=== PATIENT | female | born 1960 | race Caucasian/White ===

== ENCOUNTER 2020-07-10 15:14 | Emergency (ER) | payer OTHER ==
[~2020-07-10] VITALS: Ht 160 cm; Wt 63.5 kg
[2020-07-10 15:25] VITALS: BP 131/77
--- NOTE | 2020-07-10 15:30 | NUR ---
PT PLACED IN [facility] BED C.
[2020-07-10] MEDS: LORazepam 2 MG/ML VIAL IVP ONE (16:00)
--- NOTE | 2020-07-10 16:00 | NUR ---
PT DEAF AND UNABLE TO COMMUNICATE VERBALLY. PT READ WRITTEN NOTED AND RESPONDED THAT SHE HAS BEEN HAVING SUDDEN ONSET GENERALIZED BODY PAIN SINCE 2PM TODAY. PER EMS - PT WAS TWITCHING AND HAVING "SEIZURE LIKE BEHAVIOR." PER EMS, PT HAS A HX OF EPILEPSY BUT STOPPED TAKING HER MEDICATION. LAST SEIZURE APPROX. 1 YEAR AGO. PER PT SISTER, SHE HAS RECENTLY STOPPPED TAKING MEDICATION FOR LUPUS AND EPILESPY AND STATES THE PATIENTS CLAIMS "GOD HEALED HER". PER SISITER, PT ALSO USES [employer]C GUMMIES FOR CHRONIC PAIN. PT IS POOR HISTORIAN. NO OBVIOUS TRAUMA NOTED. PT PLACED IN [facility] AT THIS TIME.
[2020-07-10] MEDS: NACL 0.9% 1,000 ML IV ONE (16:01)
[2020-07-10 16:11] LABS: BASOPHILS % (AUTO) 0.6 % (0.0-2.0); EOSINOPHILS % (AUTO) 0.5 % (0.0-4.0); HEMATOCRIT 28.6 % (36-48); HEMOGLOBIN 9.4 g/dL (12.0-16.0); LYMPHOCYTES # (AUTO) 0.8 K/uL (2.5-16.5); LYMPHOCYTES % (AUTO) 33.7 % (20.5-51.1); MEAN CORPUSCULAR HEMOGLOBIN 27 pg (27-31); MEAN CORPUSCULAR HGB CONC 33 g/dL (33-37); MEAN CORPUSCULAR VOLUME 82.6 fL (80-94); MONOCYTES # (AUTO) 0.3 K/uL (0.8-1.0); MONOCYTES % (AUTO) 12.3 % (1.7-9.3); NEUTROPHILS # (AUTO) 1.3 K/uL (1.8-7.7); NEUTROPHILS % (AUTO) 52.9 % (42.2-75.2); PLATELET COUNT (AUTO) 106 K/uL (140-450); RED BLOOD CELL COUNT(AUTO) 3.46 MIL/uL (4.20-5.40); RED CELL DISTRIBUTION WIDTH 16.9 % (11.6-13.7); WHITE BLOOD COUNT (AUTO) 2.4 K/uL (4.8-10.8)
[2020-07-10 16:39] LABS: PROTHROMBIN TIME 9.3 secs (10.8-13.4)
[2020-07-10 16:42] LABS: ALBUMIN 3.3 g/dL (3.4-5.0); ANION GAP 14.7 (8-16); ASPARTATE AMINOTRANSFERASE 40 U/L (15-37); CHLORIDE 105 mmol/L (98-107); CREATININE 0.8 mg/dL (0.6-1.3); GFR ARICAN-AMERICAN 93 mL/min (>90); GLUCOSE 105 mg/dL (74-106); POTASSIUM 3.7 mmol/L (3.5-5.1); SODIUM SERUM 142 mmol/L (136-145); TOTAL BILIRUBIN 0.3 mg/dL (0.0-1.0); UREA NITROGEN, BLOOD 19 mg/dL (7-18)
[2020-07-10 16:46] LABS: ACETAMINOPHEN < 0.5 ug/ml (10-30); SALICYLATE < 2.8 mg/dL (2.8-20.0)
[2020-07-10 18:50] LABS: APPEARANCE,URINE CLEAR (CLEAR); BILIRUBIN,URINE NEGATIVE (NEGATIVE); BLOOD, URINE TRACE-L (NEGATIVE); COLOR,URINE YELLOW (YELLOW); LEUKOCYTE ESTERASE ,URINE NEGATIVE (NEGATIVE); NITRITE, URINE NEGATIVE (NEGATIVE); UGLUCOSE NEGATIVE (NEGATIVE)
[2020-07-10 19:05] LABS: BARBITURATE, URINE NEGATIVE ng/ml (NEG <=200); BENZODIAZEPINE, URINE NEGATIVE ng/mL (NEG <=200); CANNABINOID, URINE POSITIVE ng/mL (NEG <=50); COCAINE, URINE NEGATIVE ng/mL (NEG <=300); OPIATE, URINE NEGATIVE ng/mL (NEG <=2000); PHENCYCLIDINE SCREEN,URINE NEGATIVE ng/mL (NEG <=25)
[2020-07-10 20:18] VITALS: BP 128/76
--- NOTE | 2020-07-10 20:18 | NUR ---
Patient discharged with v/s stable. Written and verbal after care instructions given and explained. Patient alert, oriented and verbalized understanding of instructions. Ambulatory with steady gait. All questions addressed prior to discharge. ID band removed. Patient advised to follow up with PMD. Rx of ACETAMINOPHEN, ATIVAN given. Patient educated on indication of medication including possible reaction and side effects. Opportunity to ask questions provided and answered.
--- NOTE | 2020-07-10 20:25 | NUR ---
Makayla freeman in ED - 07/11/20 at 0818 by [email or web address] PATIENT ELOPED FROM FACILITY. DISCHARGE INSTRUCTIONS NOT GIVEN TO PATIENT. DR. ALICEA NOTIFIED.
== END 2020-07-10 20:18 | disposition home or self-care (01) ==
LOC: MED 15:14
DX: R56.9 Unspecified convulsions (principal); R25.1 Tremor, unspecified; E03.9 Hypothyroidism, unspecified; M32.9 Systemic lupus erythematosus, unspecified
CPT/HCPCS: 36415; 70450; 80053; 80305; 81003; 85025; 85610; 96374; 96375; 99284; G0480; G0482; J2060

== ENCOUNTER 2020-07-18 17:32 | Emergency (ER) | payer OTHER ==
[~2020-07-18] VITALS: Ht 157.5 cm; Wt 49.9 kg
[2020-07-18 17:45] VITALS: BP 136/66
--- NOTE | 2020-07-18 17:55 | NUR ---
ROSMERY. HANDED ON C-Note ESVIN.
--- NOTE | 2020-07-18 18:15 | NUR ---
Patient being evaluated by physician at [facility].
[2020-07-18] MEDS ORDERED: cefTRIAXone 1,000 MG in DEXT 5% MINI-BAG PLUS 50 ML IV ONE (18:35)
[2020-07-18] MEDS ORDERED: NACL 0.9% 1,000 ML IV SCH (18:35)
[2020-07-18] MEDS ORDERED: KETOROLAC 15 MG/ML VIAL IVP STA (18:35)
--- NOTE | 2020-07-18 18:52 | NUR ---
NANCY DAMIAN COLLECTED.
[2020-07-18 19:46] LABS: BASOPHILS % (AUTO) 0.1 % (0.0-2.0); EOSINOPHILS % (AUTO) 0.4 % (0.0-4.0); HEMATOCRIT 28.9 % (36-48); HEMOGLOBIN 9.3 g/dL (12.0-16.0); LYMPHOCYTES # (AUTO) 0.7 K/uL (2.5-16.5); LYMPHOCYTES % (AUTO) 16.1 % (20.5-51.1); MEAN CORPUSCULAR HEMOGLOBIN 27 pg (27-31); MEAN CORPUSCULAR HGB CONC 32 g/dL (33-37); MEAN CORPUSCULAR VOLUME 83.2 fL (80-94); MONOCYTES # (AUTO) 0.2 K/uL (0.8-1.0); MONOCYTES % (AUTO) 5.4 % (1.7-9.3); NEUTROPHILS # (AUTO) 3.3 K/uL (1.8-7.7); PLATELET COUNT (AUTO) 118 K/uL (140-450); RED BLOOD CELL COUNT(AUTO) 3.47 MIL/uL (4.20-5.40); RED CELL DISTRIBUTION WIDTH 16.9 % (11.6-13.7); WHITE BLOOD COUNT (AUTO) 4.2 K/uL (4.8-10.8)
[2020-07-18 20:05] LABS: ALBUMIN 3.2 g/dL (3.4-5.0); ANION GAP 9.4 (8-16); CARBON DIOXIDE 28.2 mmol/L (21-32); CREATININE 0.7 mg/dL (0.6-1.3); POTASSIUM 3.6 mmol/L (3.5-5.1); TOTAL BILIRUBIN 0.3 mg/dL (0.0-1.0)
--- NOTE | 2020-07-18 20:35 | NUR ---
# 14 FR Urinary catheter inserted utilizing sterile technique. Immediate return of 400 ml YELLOW urine noted. Urine sample collected and sent to lab. Pt tolerated procedure WELL.
--- NOTE | 2020-07-18 20:40 | NUR ---
60 Y/O FEMALE BIB SISTER C/O URINARY BURNING X SINCE WEDNESDAY. PER SISTER PT HAD FEVER ON WEDNESDAY , SEIZURE ON WEDNESDAY . PT WAS DX W/ UTI X 1 WEEK - FINISHED KEFLEX ON WEDNESDAY W/ NO RELIEF. PT STILL FEELING BURNING SENSATION. PT ABD FLAT, SOFT AND NONTENDER. PT RESTING IN CHAIR, NO ACUTE DISTRESS. SISTER AT CHAIR SIDE. PMH: LUPUS, 2 STENTS IN HEART NKA
--- NOTE | 2020-07-18 20:42 | NUR ---
URINE SAMPLE COLLECTED AND HANDED TO LAB.
[2020-07-18 21:39] LABS: APPEARANCE,URINE HAZY (CLEAR); BILIRUBIN,URINE 1+ (NEGATIVE); BLOOD, URINE 2+ (NEGATIVE); COLOR,URINE BROWN (YELLOW); LEUKOCYTE ESTERASE ,URINE 2+ (NEGATIVE); NITRITE, URINE NEGATIVE (NEGATIVE); UGLUCOSE NEGATIVE (NEGATIVE)
--- NOTE | 2020-07-18 21:40 | NUR ---
PER ERMD - NO IV NECESSARY , ALL MEDS CANCELLED AT THIS TIME.
[2020-07-18 21:47] VITALS: BP 130/65
--- NOTE | 2020-07-18 21:47 | NUR ---
Patient discharged with v/s stable. Written and verbal after care instructions given and explained. Patient alert, oriented and verbalized understanding of instructions. Ambulatory with steady gait. All questions addressed prior to discharge. ID band removed. Patient advised to follow up with PMD. Rx of BACTRIM & PHENZAOPYRIDINE given. Patient educated on indication of medication including possible reaction and side effects. Opportunity to ask questions provided and answered.
[2020-07-18 21:49] LABS: WBC,URINE 20-60 /HPF (0-5)
== END 2020-07-18 21:47 | disposition home or self-care (01) ==
LOC: MED 17:32
DX: N39.0 Urinary tract infection, site not specified (principal); R53.1 Weakness; R56.9 Unspecified convulsions; M32.9 Systemic lupus erythematosus, unspecified; Z20.828 Contact with and (suspected) exposure to other viral communicable diseases
CPT/HCPCS: 36415; 51702; 80053; 81001; 83690; 85025; 87086; 99284

== ENCOUNTER 2021-05-14 17:29 | Emergency (ER) | payer OTHER ==
[~2021-05-14] VITALS: Ht 157.5 cm; Wt 63.5 kg
[2021-05-14 17:40] VITALS: BP 154/79
[2021-05-14 18:48] LABS: BASOPHILS % (AUTO) 0.4 % (0.0-2.0); EOSINOPHILS % (AUTO) 1.2 % (0.0-4.0); HEMATOCRIT 34.7 % (36-48); HEMOGLOBIN 11.4 g/dL (12.0-16.0); LYMPHOCYTES # (AUTO) 1.7 K/uL (2.5-16.5); LYMPHOCYTES % (AUTO) 50.3 % (20.5-51.1); MEAN CORPUSCULAR HEMOGLOBIN 28 pg (27-31); MEAN CORPUSCULAR HGB CONC 33 g/dL (33-37); MEAN CORPUSCULAR VOLUME 86.5 fL (80-94); MONOCYTES # (AUTO) 0.3 K/uL (0.8-1.0); MONOCYTES % (AUTO) 9.5 % (1.7-9.3); NEUTROPHILS # (AUTO) 1.3 K/uL (1.8-7.7); NEUTROPHILS % (AUTO) 38.6 % (42.2-75.2); PLATELET COUNT (AUTO) 126 K/uL (140-450); RED BLOOD CELL COUNT(AUTO) 4.01 MIL/uL (4.20-5.40); RED CELL DISTRIBUTION WIDTH 14.9 % (11.6-13.7); WHITE BLOOD COUNT (AUTO) 3.4 K/uL (4.8-10.8)
[2021-05-14 18:58] LABS: ANION GAP 12.1 (8-16); CARBON DIOXIDE 26.6 mmol/L (21-32); CREATININE 0.8 mg/dL (0.6-1.3); POTASSIUM 3.7 mmol/L (3.5-5.1)
[2021-05-14 21:34] VITALS: BP 150/84
[2021-05-14] MEDS ORDERED: ACETAMINOPHEN/CODEINE 300/30MG 1 TAB PO ONE (22:00)
[2021-05-14] MEDS ORDERED: cephALEXin 500 MG CAP PO ONE (22:00)
[2021-05-14] MEDS ORDERED: CEPH-588 PO (23:05)
[2021-05-14] MEDS ORDERED: SULF-59 PO (23:06)
[2021-05-14] MEDS ORDERED: ACET-503 PO (23:08)
== END 2021-05-14 23:24 | disposition home or self-care (01) ==
LOC: MED 17:29
DX: L03.115 Cellulitis of right lower limb (principal); Z87.2 Personal history of diseases of the skin and subcutaneous tissue; E03.9 Hypothyroidism, unspecified; Z86.69 Personal history of other diseases of the nervous system and sense organs; I25.10 Atherosclerotic heart disease of native coronary artery without angina pectoris; I10 Essential (primary) hypertension; Z98.61 Coronary angioplasty status; Z98.890 Other specified postprocedural states; Z79.2 Long term (current) use of antibiotics; Z79.891 Long term (current) use of opiate analgesic; Z88.1 Allergy status to other antibiotic agents; Z88.8 Allergy status to other drugs, medicaments and biological substances
CPT/HCPCS: 36415; 72193; 80048; 85025; 87040; 99285; Q9967